=== PATIENT | female | born 1995 | race Two or more races ===

== ENCOUNTER → 2021-01-30 | Emergency (ER) | payer OTHER ==
[~2021-01-30] VITALS: Ht 162.6 cm; Wt 59.4 kg
[~2021-01-30] MED LIST: KETO10TA2 PO; NORFLEX100MG PO; SPRINTEC 28 DA1 EACH; [UNRECOGNIZED DRUG - REMARK]
== END | disposition home or self-care (01) ==
LOC: ER 12:58
DX: M54.59 Other low back pain (principal)